=== PATIENT | female | born 1975 | race Hispanic/Latino ===

== ENCOUNTER 2020-08-16 19:23 | Inpatient (IN) | payer OTHER ==
[~2020-08-16] VITALS: Ht 152.4 cm; Wt 66.9 kg
[2020-08-16 20:19] LABS: APPEARANCE,URINE Turbid (CLEAR); BILIRUBIN,URINE Small (NEGATIVE); COLOR,URINE Dark Yellow (YELLOW); GLUCOSE, URINE (UA) Negative (NEGATIVE); KETONES,URINE Trace mg/dL (NEGATIVE); LEUKOCYTE ESTERASE ,URINE Large (NEGATIVE); NITRATE,URINE Negative (NEGATIVE); OCCULT BLOOD,URINE Large (NEGATIVE); PH,URINE 5.5 (5.0-8.0); PROTEIN,URINE 300 mg/dL (NEGATIVE)
[2020-08-16] MEDS ORDERED: KETOROLAC 30MG VIAL (30MG/ML) IV ONE (20:30)
[2020-08-16] MEDS ORDERED: 0.9%NACL 1000ML 1,000 ML IV ONE (20:30)
[2020-08-16 20:31] LABS: BACTERIA,URINE Moderate /HPF (None Seen); WBC,URINE >100 /HPF (0-1)
[2020-08-16 20:32] LABS: MUCUS,URINE Rare LPF (None Seen); SQUAMOUS EPITHELIAL CELL,UR 0-2 /HPF (0-2)
[2020-08-16 20:57] LABS: BASOPHILS % (AUTO) 0.5 % (0.0-5.0); EOSINOPHILS % (AUTO) 0.2 % (0.0-8.0); HEMATOCRIT 32.6 % (36-48); LYMPHOCYTES % (AUTO) 6.8 % (21.0-51.0); MEAN CORPUSCULAR HEMOGLOBIN 23.4 pg (27.0-33.0); MEAN CORPUSCULAR HGB CONC 29.1 g/dL (32.0-36.0); MEAN CORPUSCULAR VOLUME 80.3 fL (79-99); MONOCYTES % (AUTO) 5.3 % (3.0-13.0); NEUTROPHILS % (AUTO) 86.6 % (40.0-77.0); PLATELET COUNT (AUTO) 548 K/uL (130-400); RED BLOOD CELL COUNT(AUTO) 4.06 MIL/uL (4.00-5.50); RED CELL DISTRIBUTION WIDTH 20.5 % (11.0-15.5); WHITE BLOOD COUNT (AUTO) 19.4 K/uL (4.8-10.8)
[2020-08-16 21:17] LABS: CREATININE 1.4 mg/dL (0.5-1.5); POTASSIUM 3.8 mmol/L (3.5-5.1)
[2020-08-16 21:22] LABS: ALBUMIN 2.3 g/dL (3.5-5.0); BILIRUBIN,TOTAL 0.3 mg/dL (0.2-1.0); TOTAL PROTEIN, SERUM 9.9 g/dL (6.0-8.3)
[2020-08-16 21:25] VITALS: BP 102/75
[2020-08-16] MEDS ORDERED: CEFTRIAXONE 1G VIAL IVP ONE (21:30)
[2020-08-16] MEDS ORDERED: CEFTRIAXONE 1G VIAL ONE (22:58)
[2020-08-17] VITALS (8 sets, daily range): BP systolic 104–141; BP diastolic 53–88
[2020-08-17] MEDS ORDERED: ZOSYN 3.375GM+NS 50ML 50 ML IV ONE ×4 (00:52→22:34)
[2020-08-17] MEDS: PIP/TAZ ZOSYN 3.375G 3.375 GM VIAL IVPB SCH ×4 (01:03→23:10)
[2020-08-17] MEDS: 0.9%NACL 50ML IV SCH ×4 (01:03→23:11)
[2020-08-17 01:57] LABS: HEMOGLOBIN A1C 6.3 % (4.0-6.0)
[2020-08-17 02:00] LABS: % IRON SATURATION 16.1 % (22-44)
[2020-08-17 02:10] LABS: CREATINE KINASE, TOTAL 28 U/L (21-232); MYOGLOBIN 20 ng/mL (10-92); TROPONIN I < 0.04 ng/mL (0.00-0.06)
[2020-08-17 02:55] LABS: INR 1.31 (0.85-1.15); PROTHROMBIN TIME 13.9 SEC (9.6-11.6)
[2020-08-17 02:56] LABS: PARTIAL THROMBOPLASTIN TIME 22.2 SEC (26.3-35.5)
[2020-08-17] MEDS ORDERED: 0.9%NACL 1000ML 1,000 ML IV SCH (03:00)
[2020-08-17] MEDS ORDERED: ONDANSETRON 4MG INJ IV PRN (03:00)
[2020-08-17] MEDS ORDERED: NITROGLYCERIN 0.4 MG SL TAB SL PRN (03:00)
[2020-08-17] MEDS ORDERED: ACETAMINOPHEN 325 MG TAB PO PRN ×2 (03:00)
[2020-08-17] MEDS: 0.9%NACL 1000ML 1,000 ML IV SCH ×3 (04:08→20:46)
[2020-08-17 06:43] LABS: BASOPHILS % (AUTO) 0.5 % (0.0-5.0); EOSINOPHILS % (AUTO) 1.1 % (0.0-8.0); LYMPHOCYTES % (AUTO) 9.3 % (21.0-51.0); MEAN CORPUSCULAR HEMOGLOBIN 24.2 pg (27.0-33.0); MEAN CORPUSCULAR HGB CONC 29.6 g/dL (32.0-36.0); MEAN CORPUSCULAR VOLUME 81.8 fL (79-99); MONOCYTES % (AUTO) 8.2 % (3.0-13.0); NEUTROPHILS % (AUTO) 80.3 % (40.0-77.0); PLATELET COUNT (AUTO) 393 K/uL (130-400); RED BLOOD CELL COUNT(AUTO) 3.18 MIL/uL (4.00-5.50); RED CELL DISTRIBUTION WIDTH 20.5 % (11.0-15.5); WHITE BLOOD COUNT (AUTO) 18.7 K/uL (4.8-10.8)
[2020-08-17 07:24] LABS: ALBUMIN 1.7 g/dL (3.5-5.0); BILIRUBIN,TOTAL 0.2 mg/dL (0.2-1.0); CREATININE 1.1 mg/dL (0.5-1.5); MAGNESIUM 2.2 mg/dL (1.80-2.40); POTASSIUM 3.8 mmol/L (3.5-5.1); TOTAL PROTEIN, SERUM 7.7 g/dL (6.0-8.3)
[2020-08-17] MEDS: FAMOTIDINE 20MG TAB PO SCH ×2 (08:18→20:46)
[2020-08-17] MEDS ORDERED: MORPHINE 2 MG SYG IVP PRN (12:30)
[2020-08-17] MEDS: KETOROLAC 15MG/ML VIAL (15MG/ML) IV PRN (12:40)
[2020-08-17] MEDS ORDERED: EPOETIN ALFA-EPBX (NON-ESRD) 10,000 UNIT/ML VIAL SQ SCH (15:30)
[2020-08-17] MEDS: IRON SUCROSE COMPLEX 300 MG in 0.9%NACL 50ML 50 ML IV SCH (15:30)
[2020-08-17] MEDS ORDERED: COMPOUND IV MISC 1 EACH IVSOLN MISC PRN (16:00)
[2020-08-18] MEDS ORDERED: DIPHENHYDRAMINE HCL 25 MG CAPSULE PO ONE (00:30)
[2020-08-18 04:13] LABS: BASOPHILS % (AUTO) 0.5 % (0.0-5.0); EOSINOPHILS % (AUTO) 0.7 % (0.0-8.0); HEMATOCRIT 29.8 % (36-48); LYMPHOCYTES % (AUTO) 6.6 % (21.0-51.0); MEAN CORPUSCULAR HEMOGLOBIN 24.6 pg (27.0-33.0); MEAN CORPUSCULAR HGB CONC 29.5 g/dL (32.0-36.0); MEAN CORPUSCULAR VOLUME 83.2 fL (79-99); NEUTROPHILS % (AUTO) 87.6 % (40.0-77.0); PLATELET COUNT (AUTO) 394 K/uL (130-400); RED BLOOD CELL COUNT(AUTO) 3.58 MIL/uL (4.00-5.50); RED CELL DISTRIBUTION WIDTH 19.2 % (11.0-15.5)
[2020-08-18 04:38] LABS: ALBUMIN 1.5 g/dL (3.5-5.0); BILIRUBIN,TOTAL 0.7 mg/dL (0.2-1.0); POTASSIUM 3.8 mmol/L (3.5-5.1); TOTAL PROTEIN, SERUM 7.4 g/dL (6.0-8.3)
[2020-08-18 04:56] VITALS: BP 103/63
[2020-08-18] MEDS ORDERED: ZOSYN 3.375GM+NS 50ML 50 ML IV ONE (05:14)
[2020-08-18] MEDS: 0.9%NACL 50ML IV SCH ×2 (06:08→15:01)
[2020-08-18] MEDS: PIP/TAZ ZOSYN 3.375G 3.375 GM VIAL IVPB SCH (06:08)
[2020-08-18] MEDS: 0.9%NACL 1000ML 1,000 ML IV SCH ×2 (07:59→20:14)
[2020-08-18] MEDS: FAMOTIDINE 20MG TAB PO SCH ×2 (07:59→20:13)
[2020-08-18 08:00] VITALS: BP 103/65
[2020-08-18] MEDS: IRON SUCROSE COMPLEX 300 MG in 0.9%NACL 50ML 50 ML IV SCH (09:54)
[2020-08-18] MEDS: KETOROLAC 15MG/ML VIAL (15MG/ML) IV PRN (11:36)
[2020-08-18 12:00] VITALS: BP 105/66
[2020-08-18] MEDS: ZOSYN 3.375GM+NS 50ML 50 ML IV SCH (15:01)
[2020-08-18 16:00] VITALS: BP 108/64
[2020-08-18 19:00] VITALS: BP 107/68
[2020-08-18] MEDS ORDERED: DIPHENOXYLATE HCL/ATROPINE 2.5/0.025 MG TAB PO ONE (21:30)
[2020-08-18 23:59] VITALS: BP 124/79
[2020-08-19] MEDS: ZOSYN 3.375GM+NS 50ML 50 ML IV SCH (00:19)
[2020-08-19] MEDS: 0.9%NACL 50ML IV SCH (00:19)
[2020-08-19] MEDS ORDERED: DIPHENOXYLATE HCL/ATROPINE 2.5/0.025 MG TAB PO ONE (02:34)
[2020-08-19] MEDS: 0.9%NACL 1000ML 1,000 ML IV SCH (03:57)
[2020-08-19 04:00] VITALS: BP 124/71
[2020-08-19 04:24] LABS: BASOPHILS % (AUTO) 0.4 % (0.0-5.0); EOSINOPHILS % (AUTO) 0.8 % (0.0-8.0); HEMATOCRIT 27.6 % (36-48); LYMPHOCYTES % (AUTO) 9.2 % (21.0-51.0); MEAN CORPUSCULAR HGB CONC 30.4 g/dL (32.0-36.0); MEAN CORPUSCULAR VOLUME 82.1 fL (79-99); MONOCYTES % (AUTO) 9.9 % (3.0-13.0); NEUTROPHILS % (AUTO) 79.1 % (40.0-77.0); PLATELET COUNT (AUTO) 366 K/uL (130-400); RED BLOOD CELL COUNT(AUTO) 3.36 MIL/uL (4.00-5.50); RED CELL DISTRIBUTION WIDTH 19.2 % (11.0-15.5)
[2020-08-19 04:41] LABS: ALBUMIN 1.6 g/dL (3.5-5.0); BILIRUBIN,TOTAL 0.2 mg/dL (0.2-1.0); CREATININE 1.1 mg/dL (0.5-1.5); POTASSIUM 3.4 mmol/L (3.5-5.1); TOTAL PROTEIN, SERUM 7.3 g/dL (6.0-8.3)
[2020-08-19] MEDS ORDERED: KCL 20 MEQ ERTAB PO ONE (06:12)
[2020-08-19 06:19] LABS: BAND NEUTROPHILS % (MANUAL) 11 % (0-2); EOSINOPHILS % (MANUAL) 1 % (1-6); LYMPHOCYTES % (MANUAL) 4 % (22-44); MAN.DIFF COMMENT-IMPRESSION MANUAL DIFFERENTIAL; MONOCYTES % (MANUAL) 5 % (2-9); PLATELET MORPHOLOGY COMMENT ADEQUATE; SEGMENTED NEUTROPHILS % 79 % (40-70)
[2020-08-19] MEDS ORDERED: KCL 20 MEQ ERTAB PO SCH (07:06)
[2020-08-19 07:34] VITALS: BP 99/58
[2020-08-19] MEDS: FAMOTIDINE 20MG TAB PO SCH ×2 (08:08→20:22)
[2020-08-19] MEDS: IRON SUCROSE COMPLEX 300 MG in 0.9%NACL 50ML 50 ML IV SCH (08:09)
[2020-08-19 11:45] VITALS: BP 109/67
[2020-08-19] MEDS: ACETAMINOPHEN WITH CODEINE 1 TAB TAB PO PRN ×2 (12:02→17:38)
[2020-08-19] MEDS ORDERED: ZOSYN 3.375GM+NS 50ML 50 ML IV SCH (13:00)
[2020-08-19] MEDS ORDERED: 0.9%NACL 50ML IV SCH (13:00)
[2020-08-19] MEDS: ZOSYN 3.375GM +NS 50ML IV SCH ×2 (15:59→20:23)
[2020-08-19] MEDS: 0.9%NACL 50ML 50 ML IV SCH ×2 (15:59→20:23)
[2020-08-19 16:22] VITALS: BP 113/68
[2020-08-19 19:00] VITALS: BP 113/71
[2020-08-20] VITALS: BP 124/68
[2020-08-20 04:00] VITALS: BP 100/53
[2020-08-20] MEDS: 0.9%NACL 50ML 50 ML IV SCH (04:24)
[2020-08-20] MEDS: ZOSYN 3.375GM +NS 50ML IV SCH ×2 (04:24→14:16)
[2020-08-20 04:33] LABS: BASOPHILS % (AUTO) 0.6 % (0.0-5.0); EOSINOPHILS % (AUTO) 0.8 % (0.0-8.0); HEMATOCRIT 30.5 % (36-48); LYMPHOCYTES % (AUTO) 10.3 % (21.0-51.0); MEAN CORPUSCULAR HEMOGLOBIN 24.9 pg (27.0-33.0); MEAN CORPUSCULAR HGB CONC 29.8 g/dL (32.0-36.0); MEAN CORPUSCULAR VOLUME 83.3 fL (79-99); MONOCYTES % (AUTO) 8.4 % (3.0-13.0); PLATELET COUNT (AUTO) 397 K/uL (130-400); RED BLOOD CELL COUNT(AUTO) 3.66 MIL/uL (4.00-5.50); RED CELL DISTRIBUTION WIDTH 19.6 % (11.0-15.5); WHITE BLOOD COUNT (AUTO) 15.9 K/uL (4.8-10.8)
[2020-08-20] MEDS: ACETAMINOPHEN WITH CODEINE 1 TAB TAB PO PRN (04:33)
[2020-08-20 04:55] LABS: ALBUMIN 1.7 g/dL (3.5-5.0); BILIRUBIN,TOTAL 0.2 mg/dL (0.2-1.0); CREATININE 1.2 mg/dL (0.5-1.5); TOTAL PROTEIN, SERUM 7.7 g/dL (6.0-8.3)
[2020-08-20 07:42] VITALS: BP 98/56
[2020-08-20] MEDS: FAMOTIDINE 20MG TAB PO SCH (08:01)
[2020-08-20] MEDS: IRON SUCROSE COMPLEX 300 MG in 0.9%NACL 50ML 50 ML IV SCH (08:01)
[2020-08-20 11:36] VITALS: BP 97/61
[2020-08-20] MEDS ORDERED: AMOX-429 PO (15:24)
[2020-08-20] MEDS ORDERED: AMOX-426 PO (15:47)
[2020-08-20 16:21] VITALS: BP 98/51
== END 2020-08-20 19:05 | disposition home or self-care (01) | DRG 871 ==
LOC: EDH 19:23 → EDHIP 19:24 → 4DH 08-17 23:30 → EDHIP 08-18 17:33 → 4DH 08-18 17:33
PROVIDERS: ADMIT Internal Medicine; ATTEND Internal Medicine
PROC: 30233N1 Transfusion of Nonautologous Red Blood Cells into Peripheral Vein, Percutaneous Approach (ICD-10-PCS; principal; 2020-08-17)
DX: A41.9 Sepsis, unspecified organism (principal); E43 Unspecified severe protein-calorie malnutrition; D62 Acute posthemorrhagic anemia; E87.1 Hypo-osmolality and hyponatremia; D76.3 Other histiocytosis syndromes; N11.8 Other chronic tubulo-interstitial nephritis; N39.0 Urinary tract infection, site not specified; D50.9 Iron deficiency anemia, unspecified; I10 Essential (primary) hypertension; N20.0 Calculus of kidney; R31.0 Gross hematuria; R19.7 Diarrhea, unspecified; N19 Unspecified kidney failure; K76.0 Fatty (change of) liver, not elsewhere classified; Z20.822 Contact with and (suspected) exposure to COVID-19; Z82.49 Family history of ischemic heart disease and other diseases of the circulatory system; Z68.28 Body mass index [BMI] 28.0-28.9, adult; Z87.442 Personal history of urinary calculi; Z91.19 Patient's noncompliance with other medical treatment and regimen
CPT/HCPCS: 36415; 74176; 78700; 80053; 81001; 82270; 82550; 82607; 82728; 83036; 83540; 83550; 83605; 83630; 83735; 83874; 84145; 84484; 85025; 85610; 85651; 85730; 86140; 86850; 86900; 86901; 86923; 87040; 87046; 87088; 87177; 87324; 87507; 87635; 93005; A9562; G0378; J0696; J1756; J1885; J2405; J2543; J7030; P9016; Q0163